=== PATIENT | female | born 1950 | race Caucasian/White ===

== ENCOUNTER 2019-05-01 | Emergency (ER) | payer MEDICARE ==
[2019-05-01] MEDS ORDERED: PEPCID20 MG PO (13:54)
[2019-05-01] MEDS ORDERED: PLAVIX75 MG PO (13:54)
[2019-05-01] MEDS ORDERED: BACTRIM DS1 TAB PO (13:54)
[2019-05-01] MEDS ORDERED: LIPITOR20 M1 PO (13:54)
[2019-05-01] MEDS ORDERED: ZOLOFT25 MG PO (13:55)
[2019-05-01] MEDS ORDERED: CARAFATE1 GM PO (14:43)
== END 2019-05-01 14:51 | disposition home or self-care (01) ==
DX: K21.9 Gastro-esophageal reflux disease without esophagitis (principal); I25.2 Old myocardial infarction; Z95.5 Presence of coronary angioplasty implant and graft

== ENCOUNTER 2020-08-16 13:40 | Observation (INO) | payer MEDICARE ==
[~2020-08-16] VITALS: Ht 165.1 cm; Wt 103.0 kg
[~2020-08-16 13:40] MED LIST: BACTRIM DS1 TAB PO; CARAFATE1 GM PO; LIPITOR20 M1 PO; PEPCID20 MG PO; PLAVIX75 MG PO; ZOLOFT25 MG PO
--- NOTE | 2020-08-16 13:42 | NUR ---
PT AMBULATED TO ROOM # 9 WITH STEADY GAIT FOR BEDSIDE TRIAGE
--- NOTE | 2020-08-16 13:42 | NUR ---
PATIENT STATES SUDDEN ONSET OF DIZZINESS WHERE SHE FEELS LIKE SHE IS SPINNING AND RIGHT AND LEFT VISUAL FIELD CUTS STARTING 3 DAYS PRIOR. PATIENT STATES INTERMITTENT PALPITATIONS STARTING WITHIN THE LAST 24 HOURS. 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 PATIENT DENIES ANY PAIN OR PALPITATIONS AT THIS TIME. MD NOTIFIED OF PATIENT STATUS
[2020-08-16] MEDS ORDERED: LIPITOR10 M1 PO (14:26)
[2020-08-16] MEDS ORDERED: PEPCID20 MG PO (14:27)
[2020-08-16] MEDS ORDERED: HYDROXYZ HCL25 MG PO (14:27)
--- NOTE | 2020-08-16 14:30 | NUR ---
PT RESTING COMFORTABLY ON STRETCHER STATING THAT SHE IS FEELING BETTER.
[2020-08-16 14:57] LABS: HEMATOCRIT 44.1 % (37.0-47.0); HEMOGLOBIN 13.9 g/dl (12.0-16.0); IMMATURE GRANULOCYTES 0.9 % (0.0-5.0); MEAN CELL VOLUME 90.7 fL CALC (80.0-100.0); MEAN CORPUSCULAR HGB 28.6 pG CALC (26.0-32.0); MEAN CORPUSCULAR HGB CONC 31.5 g/dL CAL (32.0-36.0); NEUT# 4.44 thou/uL (2.00-7.15); RED BLOOD COUNT 4.86 mill/uL (4.20-5.60); RED CELL DISTRI WIDTH 14.9 % (11.5-15.5)
[2020-08-16 15:10] LABS: ALBUMIN 4.1 g/dL (3.2-5.0); ALKALINE PHOSPHATASE 115 u/l (38-126); ANION GAP 14 (6-22 (CALC)); BILIRUBIN, TOTAL 0.3 mg/dL (0.0-1.4); BUN 19 mg/dL (8-23); BUN/CREATININE RATIO 19 (12-20 (CALC)); CARBON DIOXIDE 25 mmol/l (22-30); CHLORIDE 103 mmol/l (95-108); GFR 55 ML/MIN (>=60 (CALC)); GFR FOR AFR.AMER. > 60 ML/MIN (>=60 (CALC)); MAGNESIUM 2.2 mg/dL (1.6-2.3); POTASSIUM 4.2 mmol/l (3.5-5.1); SGOT/AST 33 u/l (9-36); SODIUM 137 mmol/l (137-146); TOTAL PROTEIN 8.1 g/dL (6.3-8.2)
--- NOTE | 2020-08-16 15:30 | NUR ---
PT RESTING COMFORTABLY ON STRETCHER AT THIS TIME. NO COMPLAINTS VOICED AT THIS TIME.
[2020-08-16 16:00] LABS: URINE BILIRUBIN - DIPSTICK NEGATIVE (NEGATIVE); URINE BLOOD DIPSTICK NEGATIVE (NEGATIVE); URINE COLOR YELLOW; URINE GLUCOSE - DIPSTICK NEGATIVE (NEGATIVE); URINE KETONE NEGATIVE (NEGATIVE); URINE LEUK ESTERASE TRACE (NEGATIVE); URINE PROTEIN - DIPSTICK NEGATIVE (NEG-TRACE); URINE UROBILINOGEN - DIPSTICK 0.2 E.U./dL (0.2)
[2020-08-16 16:02] LABS: URINE NITRITE - DIPSTICK NEGATIVE (Negative)
--- NOTE | 2020-08-16 16:30 | NUR ---
PATIENT AWARE OF PENDING ADMIT. PT RESTING COMFORTABLY ON STRETCHER
--- NOTE | 2020-08-16 17:30 | NUR ---
PT RESTING COMFORTABLY ON STRETCHER AWAITING ADMISSION AT THIS TIME.
--- NOTE | 2020-08-16 18:45 | NUR ---
REPORT CALLED TO HITESH MINA.
--- NOTE | 2020-08-16 18:45 | NUR ---
TELEPHONE REPORT RECEIVED FROM Starr KINGSTON RN IN ER. ROOM 285 PREPARED TO RECEIVE PT.
[2020-08-16 19:44] VITALS: BP 192/77
--- NOTE | 2020-08-16 19:44 | NUR ---
PT ARRIVES TO UNIT VIA AT 1943. ACCOMPANIED BY Neelam PEOPLES RN. ADMITTED TO ROOM 285.
--- NOTE | 2020-08-16 19:44 | NUR ---
BY WC TO ROOM
--- NOTE | 2020-08-16 20:00 | NUR ---
ADMISSION AND ASSESMENT COMPLETED. TELE #272 ON PT. L-AC #20G SL PATENT. DENIES PAIN/DISCOMFORT OR DIZZINESS. PLAN OF CARE REVIEWED, PT VERBALIZES UNDERSTANDING. CALL NAILS WITHIN REACH, AGREES TO CALL PRN.
--- NOTE | 2020-08-16 20:45 | NUR ---
PT QUESTIONS WHY VIBRAMYCIN WAS PRESCRIBED. SPOKE WITH DR. SHER TO SEEK CLARIFICATION. VIBRAMYCIN D/C'D. HIGH B/P VALUES REPORTED WELL. PRN ANTIHYPERTENSIVE ORDER RECEIVED WITH PARAMTERES.
[2020-08-16 21:53] VITALS: BP 154/67
--- NOTE | 2020-08-16 21:55 | NUR ---
FROZEN DINNER TRAY WARMED AND PROVIDED TO PT BY Rocio AUSTIN CNA.
--- NOTE | 2020-08-16 22:10 | NUR ---
MEDICATION EDUCATION PROVIDED. HEPARIN ADMINISTERED. PRN HYDROXYZINE AND PEPCID ADMINISTERED PER PTS REQUEST. PT DECLINES LIPITOR. SEE E-MAR.
[2020-08-16 22:43] VITALS: BP 152/58
--- NOTE | 2020-08-17 02:00 | NUR ---
PT LAYING IN BED WITH EYES CLOSED, SNORING GENTLY, APPEARS TO BE SLEEPING COMFORTABLY. NO APPARENT DISTRESS, RESPIRATIONS REGULAR AND UNLABORED. CALL NAILS REMAINS WITHIN REACH.
[2020-08-17 04:00] VITALS: BP 145/47
--- NOTE | 2020-08-17 05:12 | NUR ---
Nikole BENAVIDEZ AT BEDSIDE COLLECTING BLOOD SPECIMEN.
[2020-08-17 05:56] LABS: HEMATOCRIT 44.8 % (37.0-47.0); HEMOGLOBIN 13.8 g/dl (12.0-16.0); IMMATURE GRANULOCYTES 0.3 % (0.0-5.0); MEAN CELL VOLUME 92.2 fL CALC (80.0-100.0); MEAN CORPUSCULAR HGB 28.4 pG CALC (26.0-32.0); MEAN CORPUSCULAR HGB CONC 30.8 g/dL CAL (32.0-36.0); NEUT# 3.12 thou/uL (2.00-7.15); RED BLOOD COUNT 4.86 mill/uL (4.20-5.60)
[2020-08-17 06:02] LABS: ALBUMIN 3.7 g/dL (3.2-5.0); ALKALINE PHOSPHATASE 102 u/l (38-126); ANION GAP 12 (6-22 (CALC)); BILIRUBIN, TOTAL 0.3 mg/dL (0.0-1.4); BUN 16 mg/dL (8-23); BUN/CREATININE RATIO 20 (12-20 (CALC)); CALCULATED LDLCHOLESTEROL 97 mg/dL (62-129 (CALC)); CARBON DIOXIDE 24 mmol/l (22-30); CHLORIDE 106 mmol/l (95-108); CREATININE 0.8 mg/dL (0.5-1.0); GFR > 60 ML/MIN (>=60 (CALC)); GFR FOR AFR.AMER. > 60 ML/MIN (>=60 (CALC)); HDL CHOLESTEROL 43 mg/dL (>=40); POTASSIUM 4.2 mmol/l (3.5-5.1); SGOT/AST 24 u/l (9-36); SODIUM 138 mmol/l (137-146); TOTAL PROTEIN 7.1 g/dL (6.3-8.2); TOTAL TRIGLYCERIDES 169 mg/dl (30-149); VLDL CHOLESTROL 34 mg/dl (0-48 (CALC))
[2020-08-17 06:05] LABS: TOTAL CHOLESTEROL 174 mg/dl (0-199)
--- NOTE | 2020-08-17 06:12 | NUR ---
PT REPORTS SHE CANNOT STOP SHAKING. PT IS NOTED TO BE SHIVERING. ADMITS SHE FEELS COLD. WARM BLANKET X2 PROVIDED. PT REPORTS CONCERN THAT SHAKING BEGAN SHORTLY AFTER RECEIVING SECOND DOSE OF HEPARIN SQ. PT REPORTS THOUGH SHE IS COLD SHE FEELS HER SHIVERING IS UNCONTROLLABLE AND NOT RELATED TO FEELING COLD. TEMP 97.2. VSS. DENIES SYMPTOMS OF ANGIOEDEMA. AIRWAY CLEAR. PT IS TEARY EYED, STATES "I CAN'T IMAGINE HOW THE SENIORS DYING OF COVID FELT WHEN THEY WEREN'T BEING CARED FOR". ASKED PT IF THEIR WAS ANYTHING ELSE STAFF COULD DO TO MAKE HER FEEL BETTER CARED FOR. PT DENIES AND STATES "NO, YOU'RE DOING ALL YOU CAN." PT STATES "I ALREADY TOLD YOU I DON'T HAVE IT (COVID), WHY ARE YOU TREATING ME LIKE I HAVE THE BUBONIC PLAGUE?" EDUCATION PROVIDED REGARDING CONTACT ISOLATION FOR COVID FOR THE PROTECTION OF STAFF AND PATIENTS. PT AGREES TO TAKE ANXIOLYTIC IF PRESCRIBED BY PROVIDER, STATES "BUT THIS IS NOT ANXIETY." PT STATES "THIS IS A THEME PARK", PT REMAINS TEARY EYED. PEPCID AND HYDROXYZINE ADMINISTERED THIS IS PT'S HOME TX FOR ANGIOEDEMA. PT DENIES FURTHER NEEDS. SHIVERING APPEARS TO HAVE RESOLVED. PT AGREES TO LET THIS NURSE LEAVE HER BEDSIDE AND CALL PRN FOR ANY FURTHER ISSUES. CALL NAILS WITHIN REACH.
--- NOTE | 2020-08-17 07:00 | NUR ---
PT REPORT RECEIVED FROM NIGHT NURSES, LAURA
--- NOTE | 2020-08-17 08:00 | NUR ---
PT WAS FOUND RESTING IN BED;PT IS A&OX3;VS AND ASSESSMENT WERE COMPLETED;PT IS REPORTING NO PAIN AT THIS TIME;HEART SOUNDS ARE REGULAR IN RATE AND RHTHYM;TELE IS IN PLACE;LUNG SOUNDS AER CLEAR;RESPIRATIONS ARE EVEN AND UNLABORED ON RA;ABDOMEN IS SOFT AND ACTIVE BOWEL SOUNDS ARE PRESENT IN ALL QUADRANTS;PT HAS GENERALIZED EDEMA PRESENT WITH LYMPHEDEMA PRESENT IN LL AND RT ARM;#20G IV IN LAC IS SL, PATENT AND FREE OF COMPLICATIONS AT THIS TIME;SAFETY PRECAUTIONS IN PLACE;PT IS IN NEG PRESSURE ROOM WITH AIR/CONTACT PRECAUTIONS DUE TO COVID+ SWAB;CALL LIGHT WITHIN REACH;PT ENCOURAGED TO CALL WITH ANY NEEDS OR CONCERNS;WILL CONTINUE TO MONITOR.
--- NOTE | 2020-08-17 08:30 | NUR ---
SPEECH THERAPY AT BEDSIDE
--- NOTE | 2020-08-17 09:00 | NUR ---
AND ARIANA MO AT BEDSIDE DISCUSSING POC WITH PT
[2020-08-17 09:15] VITALS: BP 169/70
--- NOTE | 2020-08-17 12:00 | NUR ---
PT WAS FOUND RESTING IN BED EATING LUNCH;PT HAS NO COMPLAINTS OF PAIN AT THIS TIME;TELE IS IN PLACE;SAFETY PRECAUTIONS IN PLACE;CALL LIGHT WITHIN REACH;WILL CONTINUE TO MONITOR.
--- NOTE | 2020-08-17 14:11 | NUR ---
Discharge instructions given. Patient verbalizes understanding of same. Discharged in stable condition via Wheelchair to Home with spouse. All belongings sent with pt. DISCHARGE PACKET WAS GIVEN TO PT;DC INSTRUCTIONS WERE EXPLAINED TO PT;PT EXPRESSED UNDERSTANDING AND HAD NO FURTHER QUESTIONS;SIGNATURE OBTAINED;TELE WAS REMOVED;IV REMOVED WITH NO COMPLICATIONS AND CATHETER INTACT;PT WILL BE TRANSPORTED HOME WITH SPOUSE PT WAS TRANSPORTED TO [facility] IN STABLE CONDITION VIA ACCOMPANIED BY STAFF;ALL PT BELONGINGS WERE SENT WITH PT;PT WILL BE TRANSPORTED HOME WITH FAMILY.
== END 2020-08-17 14:11 | disposition home or self-care (01) ==
LOC: ED 13:40 → ED-I 16:30 → ED 16:50 → MS2 16:51
PROVIDERS: Family Medicine; ADMIT Hospitalist; ATTEND Hospitalist
DX: G45.9 Transient cerebral ischemic attack, unspecified (principal); R55 Syncope and collapse; I49.3 Ventricular premature depolarization; U07.1 COVID-19; I10 Essential (primary) hypertension; I25.10 Atherosclerotic heart disease of native coronary artery without angina pectoris; I69.998 Other sequelae following unspecified cerebrovascular disease; R20.0 Anesthesia of skin; I69.928 Other speech and language deficits following unspecified cerebrovascular disease; I89.0 Lymphedema, not elsewhere classified; I25.2 Old myocardial infarction; Z95.5 Presence of coronary angioplasty implant and graft; Z86.16 Personal history of COVID-19; Z85.3 Personal history of malignant neoplasm of breast
CPT/HCPCS: G0378; Q9967

== ENCOUNTER 2021-02-19 23:19 | Emergency (ER) | payer MEDICARE ==
[~2021-02-19] VITALS: Ht 165.1 cm; Wt 99.0 kg
[~2021-02-19 23:19] MED LIST changes: +HYDROXYZ HCL25 MG PO; +LIPITOR10 M1 PO
[2021-02-20 00:44] LABS: HEMATOCRIT 41.2 % (37.0-47.0); HEMOGLOBIN 12.8 g/dl (12.0-16.0); IMMATURE GRANULOCYTES 0.3 % (0.0-5.0); MEAN CELL VOLUME 93.8 fL CALC (80.0-100.0); MEAN CORPUSCULAR HGB 29.2 pG CALC (26.0-32.0); MEAN CORPUSCULAR HGB CONC 31.1 g/dL CAL (32.0-36.0); NEUT# 4.57 thou/uL (2.00-7.15); RED BLOOD COUNT 4.39 mill/uL (4.20-5.60); RED CELL DISTRI WIDTH 14.9 % (11.5-15.5)
[2021-02-20 00:52] LABS: ALKALINE PHOSPHATASE 120 u/l (38-126); ANION GAP 13 (6-22 (CALC)); BILIRUBIN, TOTAL 0.5 mg/dL (0.0-1.4); BUN 14 mg/dL (8-23); BUN/CREATININE RATIO 11 (12-20 (CALC)); CARBON DIOXIDE 25 mmol/l (22-30); CHLORIDE 104 mmol/l (95-108); CREATININE 1.3 mg/dL (0.5-1.0); GFR 40 ML/MIN (>=60 (CALC)); GFR FOR AFR.AMER. 49 ML/MIN (>=60 (CALC)); POTASSIUM 4.4 mmol/l (3.5-5.1); SGOT/AST 22 u/l (9-36); SODIUM 137 mmol/l (137-146)
[2021-02-20 01:04] LABS: MYOGLOBIN 46 ng/mL (0 - 62)
[2021-02-20] MEDS ORDERED: WELLBUTRIN XL300 MG PO (03:22)
[2021-02-20 06:00] VITALS: BP 152/72
== END 2021-02-20 06:06 | disposition home or self-care (01) ==
LOC: ED 23:19
PROVIDERS: Emergency Medicine
DX: R07.9 Chest pain, unspecified (principal); I10 Essential (primary) hypertension; E78.00 Pure hypercholesterolemia, unspecified; I89.0 Lymphedema, not elsewhere classified; I25.2 Old myocardial infarction; Z95.5 Presence of coronary angioplasty implant and graft; Z86.73 Personal history of transient ischemic attack (TIA), and cerebral infarction without residual deficits
CPT/HCPCS: J2060

== ENCOUNTER 2022-07-15 07:05 | Day surgery (SDC) | payer MEDICARE ==
[~2022-07-15] VITALS: Ht 165.1 cm; Wt 105.7 kg
[~2022-07-15 07:05] MED LIST changes: +B-1250 MCG PO; +WELLBUTRIN XL300 MG PO; +ZOLOFT50 MG PO
[2022-07-15 08:44] VITALS: BP 156/91
== END 2022-07-15 09:13 | disposition home or self-care (01) ==
LOC: ORM 07:05
PROVIDERS: ATTEND Internal Medicine Gastroenterology
PROC: 0DJD8ZZ Inspection of Lower Intestinal Tract, Via Natural or Artificial Opening Endoscopic (ICD-10-PCS; principal; 2022-07-15)
PROC: 0DB98ZX Excision of Duodenum, Via Natural or Artificial Opening Endoscopic, Diagnostic (ICD-10-PCS; 2022-07-15)
PROC: 0DB78ZX Excision of Stomach, Pylorus, Via Natural or Artificial Opening Endoscopic, Diagnostic (ICD-10-PCS; 2022-07-15)
PROC: 0DB48ZX Excision of Esophagogastric Junction, Via Natural or Artificial Opening Endoscopic, Diagnostic (ICD-10-PCS; 2022-07-15)
DX: K25.9 Gastric ulcer, unspecified as acute or chronic, without hemorrhage or perforation (principal); K29.50 Unspecified chronic gastritis without bleeding; K21.00 Gastro-esophageal reflux disease with esophagitis, without bleeding; Z12.11 Encounter for screening for malignant neoplasm of colon; K57.30 Diverticulosis of large intestine without perforation or abscess without bleeding; K64.8 Other hemorrhoids; Z92.3 Personal history of irradiation; Z85.3 Personal history of malignant neoplasm of breast
CPT/HCPCS: 43239; G0121

== ENCOUNTER 2022-09-05 16:11 | Emergency (ER) | payer MEDICARE ==
[~2022-09-05] VITALS: Ht 165.1 cm; Wt 104.3 kg
[2022-09-05] VITALS (12 sets, daily range): BP systolic 164–186; BP diastolic 67–88
[2022-09-05 16:49] LABS: BASO% 0.7 % (0-3); EOS% 2.1 % (0-8); HEMATOCRIT 44.7 % (37.0-47.0); HEMOGLOBIN 13.9 g/dl (12.0-16.0); IMMATURE GRANULOCYTES 0.3 % (0.0-5.0); LYMPH% 19.5 % (15-41); MEAN CELL VOLUME 88.9 fL CALC (80.0-100.0); MEAN CORPUSCULAR HGB 27.6 pG CALC (26.0-32.0); MEAN CORPUSCULAR HGB CONC 31.1 g/dL CAL (32.0-36.0); NEUT% 68.4 % (42-76); RED BLOOD COUNT 5.03 mill/uL (4.20-5.60); RED CELL DISTRI WIDTH 14.9 % (11.5-15.5)
[2022-09-05 16:53] LABS: ALBUMIN 4.4 g/dL (3.2-5.0); ALKALINE PHOSPHATASE 105 u/l (38-126); ANION GAP 14 (6-22 (CALC)); BILIRUBIN, TOTAL 0.6 mg/dL (0.02-1.3); BUN 14 mg/dL (8-23); BUN/CREATININE RATIO 12 (12-20 (CALC)); CHLORIDE 111 mmol/l (95-108); CREATININE 1.1 mg/dL (0.5-1.0); GFR FOR AFR.AMER. 59 ML/MIN (>=60 (CALC)); GFR OTHER RACES 49 ML/MIN (>=60 (CALC)); POTASSIUM 3.8 mmol/l (3.5-5.1); SGOT/AST 31 u/l (9-36); SODIUM 142 mmol/l (137-146); TOTAL PROTEIN 8.4 g/dL (6.3-8.2)
[2022-09-05 17:03] LABS: CARBON DIOXIDE 21 mmol/l (22-30)
[2022-09-05] MEDS ORDERED: NORVASC PO (18:32)
[2022-09-05] MEDS ORDERED: ZOFRAN4 MG/TAB PO (18:32)
== END 2022-09-05 19:24 | disposition home or self-care (01) ==
LOC: ED 16:11
PROVIDERS: Family Medicine
DX: I10 Essential (primary) hypertension (principal); I25.10 Atherosclerotic heart disease of native coronary artery without angina pectoris; E78.00 Pure hypercholesterolemia, unspecified; K21.9 Gastro-esophageal reflux disease without esophagitis; I25.2 Old myocardial infarction; Z86.73 Personal history of transient ischemic attack (TIA), and cerebral infarction without residual deficits; Z85.3 Personal history of malignant neoplasm of breast; Z20.822 Contact with and (suspected) exposure to COVID-19; R06.02 Shortness of breath

== ENCOUNTER 2023-03-10 06:43 | Day surgery (SDC) | payer MEDICARE ==
[~2023-03-10] VITALS: Ht 165.1 cm; Wt 104.3 kg
[~2023-03-10 06:43] MED LIST changes: +NORVASC PO; +PROTONIX40 M2 PO; +ZOFRAN4 MG/TAB PO
[2023-03-10 08:14] VITALS: BP 187/161
== END 2023-03-10 08:47 | disposition home or self-care (01) ==
LOC: ENDO 06:43 → ORM 07:30 → ENDO 07:30
PROVIDERS: ATTEND Internal Medicine Gastroenterology
PROC: 0DB68ZX Excision of Stomach, Via Natural or Artificial Opening Endoscopic, Diagnostic (ICD-10-PCS; principal; 2023-03-10)
PROC: 0DB78ZX Excision of Stomach, Pylorus, Via Natural or Artificial Opening Endoscopic, Diagnostic (ICD-10-PCS; 2023-03-10)
DX: K29.70 Gastritis, unspecified, without bleeding (principal); K31.7 Polyp of stomach and duodenum; I25.10 Atherosclerotic heart disease of native coronary artery without angina pectoris; Z87.11 Personal history of peptic ulcer disease